=== PATIENT | female | born 1970 | race African-American/Black ===

== ENCOUNTER 2023-03-26 08:43 | Emergency (ER) | payer OTHER ==
[~2023-03-26] VITALS: Ht 157.5 cm; Wt 86.4 kg
[2023-03-26 09:02] VITALS: TEMP 98.5; O2SAT 98
[2023-03-26 11:53] VITALS: BP 130/84; PULSE 87; RESP 18
== END 2023-03-26 11:54 | disposition home or self-care (01) ==
LOC: ER 08:43
DX: U07.1 COVID-19 (principal); J45.909 Unspecified asthma, uncomplicated; Z98.890 Other specified postprocedural states
CPT/HCPCS: 99283; 87426; 81025; 87804 ×2; C9803